=== PATIENT | male | born 1965 | race Caucasian/White ===

== ENCOUNTER 2021-01-08 09:16 | Emergency (ER) | payer BC, OTHER ==
[~2021-01-08] VITALS: Ht 170.2 cm; Wt 74.7 kg
[2021-01-08 09:19] VITALS: BP 125/81
--- NOTE | 2021-01-08 09:40 | NUR ---
PT C/O EXPOSURE TO A BAT, STATES IT WAS FLYING AROUND IN HIS HOUSE AND LEFT "WET MESSES" IN HIS CLOSET
--- NOTE | 2021-01-08 09:45 | NUR ---
PA AT BS
[2021-01-08] MEDS ORDERED: RABIES VACCINE /PF 2.5 UNITS IM-VACC STA (09:59)
== END 2021-01-08 11:32 | disposition home or self-care (01) ==
LOC: ED 10:21
DX: Z20.3 Contact with and (suspected) exposure to rabies (principal); Z23 Encounter for immunization
CPT/HCPCS: 90471; 90675

== ENCOUNTER 2021-01-11 04:59 | Emergency (ER) | payer BC ==
[~2021-01-11] VITALS: Ht 170.2 cm; Wt 74.5 kg
--- NOTE | 2021-01-11 07:22 | NUR ---
Pt in NAD, healthy today here for rabies series vaccine.
[2021-01-11 07:59] VITALS: BP 127/74
[2021-01-11] MEDS ORDERED: RABIES VACCINE /PF 2.5 UNITS IM-VACC ONE (08:00)
== END 2021-01-11 08:01 | disposition home or self-care (01) ==
LOC: ED 06:38
DX: Z23 Encounter for immunization (principal)
CPT/HCPCS: 90471; 90675; 99283

== ENCOUNTER 2021-01-15 05:11 | Emergency (ER) | payer BC ==
[~2021-01-15] VITALS: Ht 170.2 cm; Wt 74.9 kg
[2021-01-15 05:14] VITALS: BP 141/77
[2021-01-15] MEDS ORDERED: RABIES VACCINE /PF 2.5 UNITS IM-VACC ONE (05:30)
--- NOTE | 2021-01-15 05:35 | NUR ---
FIRST CONTACT WITH PATIENT. PATIENT STATES HE IS HERE FOR HIS THIRD RABIES VACCINE.
--- NOTE | 2021-01-15 06:04 | NUR ---
Patientr given discharge instructions and they have confirmed that they understand the instructions. Patient ambulatory with steady gait. NAD, all questions answered appropriately, denies additional needs at this time. No personal belongings left in room after discharge.
== END 2021-01-15 06:06 | disposition home or self-care (01) ==
LOC: ED 05:40
DX: Z20.3 Contact with and (suspected) exposure to rabies (principal); Z23 Encounter for immunization
CPT/HCPCS: 90471; 90675; 99281

== ENCOUNTER 2021-01-22 05:14 | Emergency (ER) | payer BC ==
[~2021-01-22] VITALS: Ht 170.2 cm; Wt 74.1 kg
--- NOTE | 2021-01-22 05:36 | NUR ---
PT CAME TO ER FOR 4TH RABIES VACCINE
[2021-01-22] MEDS ORDERED: RABIES VACCINE /PF 2.5 UNITS IM-VACC ONE (06:00)
--- NOTE | 2021-01-22 06:07 | NUR ---
TOLERATED SHOT WELL.
[2021-01-22 06:08] VITALS: BP 120/83
--- NOTE | 2021-01-22 06:19 | NUR ---
Patient/Caregiver given discharge instructions and they have confirmed that they understand the instructions. Patient ambulatory with steady gait. NAD, all questions answered appropriately, denies additional needs at this time. No personal belongings left in room after discharge.
== END 2021-01-22 06:21 | disposition home or self-care (01) ==
LOC: ED 05:35
DX: Z20.3 Contact with and (suspected) exposure to rabies (principal)
CPT/HCPCS: 90471; 90675; 99283